=== PATIENT | male | born 1985 | race Caucasian/White ===

== ENCOUNTER 2019-12-30 03:12 | Emergency (ER) | payer MEDICAID, OTHER ==
[~2019-12-30] VITALS: Ht 182.9 cm; Wt 80.8 kg
[2019-12-30] MEDS ORDERED: FLUORESCEIN (FLUOR-I-STRIPS) 1 MG STRP ONE (03:39)
[2019-12-30] MEDS ORDERED: TETRACAINE 0.5% OPHTH SOLN 4 ML BTL (SINGLE DOSE ONLY) OP ONE (03:45)
[2019-12-30] MEDS ORDERED: RX-POLY/TRIMETH (POLYTRIM) OP 10 ML BTL OP STA (04:07)
--- NOTE | 2019-12-30 04:07 | ED EENT ---
History of Present Illness General Chief Complaint: Eye Problems Stated Complaint: R EYE PROBLEM Nursing Triage Note: PT AMBULATE TO ROOM FS02 WITH C/O HIS CONTACT STUCK IN HIS RIGHT EYE. PT STATES HE TRIED TO FLUSH THE CONTACT OUT WITH NEGATIVE RESULTS. Source: patient History of Present Illness Date Seen by Provider: Dec 30, 2019 Time Seen by Provider: 03:18 Initial Comments 34-year-old male presenting with right eye redness and pain. He states that in the afternoon he started having redness to his right eye and when he tried to get his contact out he was unable to do so. He had just changed his contacts 3 days ago. They are daily use but he changes them every 2 weeks. He has had no redness or difficulty before now. He was unable to flush his eye or get the contact out earlier. He had seen Dr. Mack for the contacts but by the time he was having problems with his eye the office was closed. He has had no drainage from his eye. He does have light sensitivity now with all the irritation to his eye. Allergies and Home Medications Allergies Coded Allergies: No Known Drug Allergies (Unverified , 12/30/19) Patient Home Medication List Home Medication List Reviewed: Yes Review of Systems Review of Systems Constitutional: No chills, No fever Eyes: Blurred Vision; Denies Drainage, Denies Decreased Acuity; Foreign Body Sensation, Inflammation, Pain, Photophobia; Denies Previous Injury, Denies Shadows, Denies Tunnel Vision, Denies Vision Changes; Contact Lenses Ears: No Symptoms Reported Nose: no symptoms reported Mouth: no symptoms reported Throat: no symptoms reported Respiratory: no symptoms reported Cardiovascular: no symptoms reported Gastrointestinal: no symptoms reported Musculoskeletal: no symptoms reported Skin: no symptoms reported Neurological: No Symptoms Reported Past Uwfpsna-Tjegeh-Ogrsvw Hx Past Med/Social Hx: Reviewed Nursing Past Med/Soc Hx Patient Social History Alcohol Use: Denies Use Recreational Drug Use: No Smoking Status: Never a Smoker 2nd Hand Smoke Exposure: No Recent Foreign Travel: No Contact w/Someone Who Travel: No Recent Infectious Disease Expo: No Recent Hopitalizations: No Physical Abuse: No Sexual Abuse: No Mistreated: No Fear: No Seasonal Allergies Seasonal Allergies: No Past Medical History Surgeries: No Respiratory: No Cardiac: No Neurological: No Genitourinary: No Gastrointestinal: No Musculoskeletal: Yes Back Injury Endocrine: No HEENT: No Cancer: No Psychosocial: Yes PTSD, Depression Integumentary: No Blood Disorders: No Physical Exam Vital Signs Vital Signs - First Documented 12/30/19 12/30/19 03:21 04:18 Temp 36.4 Pulse 100 Resp 19 B/P (MAP) 126/92 (103) Pulse Ox 100 O2 Delivery Room Air Height, Weight, BMI Height: '" Weight: lbs. oz. 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 II-XII nml as tested, no motor/sensory deficits, alert, oriented x 3 Skin: normal color, warm/dry Progress/Results/Core Measures Results/Orders My Orders Orders - STAR TELLO MD Tetracaine 0.5% Ophth Yue Sdv (Tetracai (12/30/19 03:45) Fluorescein Strips ([id number]) (12/30/19 03:39) Rx-Poly/Trimeth Ophth (Rx-Polytrim Ophth (12/30/19 04:07) Medications Given in ED Current Medications Medications Dose Ordered Sig/Rober Route Start Time Stop Time Status Last Admin Dose Admin Fluorescein Sodium 1 mg STK-MED ONCE .ROUTE 12/30/19 03:39 12/30/19 03:45 DC 12/30/19 03:45 1 MG Tetracaine HCl 1 OR 2 DROPS INTO AFFEC... ONCE ONCE OP 12/30/19 03:45 12/30/19 03:46 DC 12/30/19 03:45 4 ML Vital Signs/I&O 12/30/19 12/30/19 03:21 04:18 Temp 36.4 Pulse 100 87 Resp 19 17 B/P (MAP) 126/92 (103) 122/77 Pulse Ox 100 O2 Delivery Room Air Room Air Blood Pressure Mean: 103 Progress Progress Note : Progress Note After instilling tetracaine and fluorescein the contact was easily seen. While the eye was numbed with this tetracaine the contact was easily removed by myself while wearing gloves. He was then placed in a specimen container with sterile saline. Patient was started on Polytrim ophthalmic eyedrops and advised to check with Dr. Mack during the day. He was counseled to not use the contact in the right eye until the redness was cleared up. He was also advised to not use the contact that was in his eye today and to use a brand-new one month he started using contacts again in the right eye Departure Impression Primary Impression: Conjunctivitis, acute, right eye Qualified Codes: H10.31 - Unspecified acute conjunctivitis, right eye Additional Impression: Contact lens stuck Disposition: HOME, SELF-CARE Condition: Stable Departure-Patient Inst. Decision time for Depature: 04:11 Referrals: ILAN MTZ MD (PCP) Primary Care Physician Patient Instructions: Conjunctivitis (Noninfectious Pinkeye) (DC), Contact Lens Care Add. Discharge Instructions: Follow up with Dr. Mack or his eye clinic later today about the eye and contact. Use the eye drops, Poly-Trim 1 drop to right eye every 4 hours for the next 5 days. Do not use the contact lens on the right eye again until the redness has cleared up and then use a new contact lens. You may use ibuprofen 800 mg every 8 hours as needed for pain. Ice pack 15-20 minutes every few hours as needed for pain All discharge instructions reviewed with patient and/or family. Voiced understanding. STAR TELLO MD Dec 30, 2019 04:07
[2019-12-30 04:18] VITALS: BP 122/77
== END 2019-12-30 04:17 | disposition home or self-care (01) ==
LOC: ER FS 03:16
DX: H10.31 Unspecified acute conjunctivitis, right eye (principal); H18.829 Corneal disorder due to contact lens, unspecified eye
CPT/HCPCS: 99283

== ENCOUNTER 2020-03-18 23:27 | Emergency (ER) | payer SELFPAY ==
[~2020-03-18] VITALS: Ht 182.8 cm; Wt 79.3 kg
--- OUTSIDE RECORDS SUMMARY | 2020-03-18 23:37 | XMS REPORT | Continuity of Care Document ---
Author Organization Unknown Address Unknown Phone Unavailable Allergies Active Description Code Type Severity Reaction Onset Reported/Identified Relationship to Patient Clinical Status Yes No Known Drug Allergies [id number] Drug Allergy Unknown N/A 12/30/2019 Medications There is no data. 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 Results Test Result Range PDM - PAIN MGMT (PROFILE 3 WITH CONFIRMA TION) - 05/06/19 17:19 Prescribed Drug 1 Tramadol NRG Creatinine 142.4 mg/dL > or = 20.0 pH 6.24 4.5 - 9.0 Oxidant NEGATIVE mcg/mL <200 Amphetamines NEGATIVE ng/mL <500 medMATCH Amphetamines CONSISTENT NRG Benzodiazepines NEGATIVE ng/mL <100 medMATCH Benzodiazepines CONSISTENT NRG Marijuana Metabolite NEGATIVE ng/mL <20 medMATCH Marijuana Metab CONSISTENT NRG Cocaine Metabolite NEGATIVE ng/mL <150 medMATCH Cocaine Metab CONSISTENT NRG Opiates NEGATIVE ng/mL <100 medMATCH Opiates CONSISTENT NRG Oxycodone NEGATIVE ng/mL <100 medMATCH Oxycodone CONSISTENT NRG COMMENT NRG CMP - 12/24/19 11:16 GLUCOSE 86 mg/dL 65-99 UREA NITROGEN (BUN) 14 mg/dL 7-25 CREATININE 0.98 mg/dL 0.60-1.35 eGFR NON-AFR. ZAMBIAN 101 mL/min/1.73m2 > OR = 60 eGFR 117 mL/min/1.73m2 > OR = 60 BUN/CREATININE RATIO NOT APPLICABLE (calc) 6-22 SODIUM 143 mmol/L 135-146 POTASSIUM 4.7 mmol/L 3.5-5.3 CHLORIDE 107 mmol/L 98-110 CARBON DIOXIDE 29 mmol/L 20-32 CALCIUM 9.9 mg/dL 8.6-10.3 PROTEIN, TOTAL 7.6 g/dL 6.1-8.1 ALBUMIN 5.0 g/dL 3.6-5.1 GLOBULIN 2.6 g/dL (calc) 1.9-3.7 ALBUMIN/GLOBULIN RATIO 1.9 (calc) 1.0-2. 5 BILIRUBIN, TOTAL 0.8 mg/dL 0.2-1.2 ALKALINE PHOSPHATASE 66 U/L 36-130 AST 21 U/L 10-40 ALT 19 U/L 9-46 Encounters ACCT No. Visit Date/Time Discharge Status Pt. Type Provider Facility Loc./Unit Complaint [id number] 06/26/2019 10:32:00 06/26/2019 12:10: 00 DIS Outpatient MIC ELDRIDGE 012 PAIN [id number] 03/17/2020 15:20:00 ACT Outpatient [facility] [address] [id number] 12/24/2019 10:20:00 Document Registration [id number] 05/06/2019 16:40:00 Document Registration [id number] 05/27/2018 08:00:00 05/27/2018 23:59 :59 CLS Outpatient Annette Eldridge [facility] [id number] 12/30/2019 03:16:00 020 04:17:00 DIS Outpatient ELISHA DEGROOT, STAR Padilla [facility] ER FS R EYE PROBLEM
[2020-03-18 23:40] VITALS: BP 136/75
[2020-03-18] MEDS ORDERED: DICL75TA2 PO (23:43)
--- NOTE | 2020-03-18 23:43 | ED Upper Extremity ---
General Chief Complaint: Upper Extremity Stated Complaint: RIGHT SHOULDER PAIN Source: patient Exam Limitations: no limitations History of Present Illness Date Seen by Provider: March 18, 2020 Time Seen by Provider: 23:30 Initial Comments This patient presents to the emerge department complaining of right shoulder pain. 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 Is of pain and certain movements. Onset: this afternoon Severity: mild Pain/Injury Location: right shoulder Modifying Factors: Worse With Cold Therapy, Worse With Immobilization, Worse With Jarring, Worse With Movement, Worse With Pain Medication, Worse With Rest, Worse With Other Allergies and Home Medications Allergies Coded Allergies: No Known Drug Allergies (Unverified , 12/30/19) Patient Home Medication List Home Medication List Reviewed: Yes Review of Systems Constitutional: No no symptoms reported; see HPI; No chills, No diaphoresis, No dizziness, No fever, No malaise, No weakness, No weight gain, No weight loss, No other EENTM: No see HPI, No no symptoms reported, No ear discharge, No hearing loss, No ear pain, No blurred vision, No double vision, No eye pain, No tearing, No vision loss, No dental problems, No hoarseness, No mouth pain, No mouth swelling, No epistaxis, No nose congestion, No nose pain, No throat pain, No throat swelling, No other Respiratory: No no symptoms reported, No see HPI, No cough, No dyspnea on exertion, No hemoptysis, No orthopnea, No phlegm, No short of breath, No stridor, No wheezing, No other Cardiovascular: No no symptoms reported, No see HPI, No chest pain, No edema, No Hx of Intervention, No palpitations, No syncope, No vascular heart diseas, No other Gastrointestinal: No RUQ, No LUQ, No RLQ, No LLQ, No no symptoms reported, No see HPI, No abdominal pain, No constipation, No diarrhea, No dysphagia, No hematemesis, No heartburn, No jaundice, No loss of appetite, No melena, No nausea, No vomiting, No other Genitourinary: No no symptoms reported, No see HPI, No decreased output, No discharge, No dysuria, No frequency, No hematuria, No hesitancy, No incontinence, No nocturia, No pain, No other Musculoskeletal: No no symptoms reported; see HPI; No back pain, No gout, No joint pain, No joint swelling; muscle pain; No muscle stiffness, No muscle cramps, No muscle twitching, No muscle weakness, No neck pain, No other Skin: No no symptoms reported, No see HPI, No change in color, No change in hair/nails, No dryness, No hx of skin cancer, No lesions, No lumps, No pruritus, No rash, No other All Other Systems Reviewed Negative Unless Noted: Yes Past Jmbnatv-Unxmcc-Csisqa Hx Patient Social History 2nd Hand Smoke Exposure: No Recent Foreign Travel: No Contact w/Someone Who Travel: No Recent Hopitalizations: No Seasonal Allergies Seasonal Allergies: No Past Medical History Surgeries: No Respiratory: No Cardiac: No Neurological: No Genitourinary: No Gastrointestinal: No Musculoskeletal: Yes Back Injury Endocrine: No HEENT: No Cancer: No Psychosocial: Yes PTSD, Depression Integumentary: No Blood Disorders: No Physical Exam Vital Signs Capillary Refill : Height, Weight, BMI Height: '" Weight: lbs. oz. kg; 24.00 BMI Method: General Appearance: WD/WN, no apparent distress HEENT: PERRL/EOMI, normal ENT inspection, TMs normal, pharynx normal Neck: non-tender, full range of motion, supple, normal inspection Cardiovascular: normal peripheral pulses, regular rate, rhythm, no edema, no gallop, no JVD, no murmur Respiratory: chest non-tender, lungs clear, normal breath sounds, no respiratory distress, no accessory muscle use Shoulder: normal inspection, no evidence of injury, limited ROM (on exam patient appears to have an infraspinatus rotator cuff strain. Otherwise exam is normal.) Progress/Results/Core Measures Progress Progress Note : Time: 23:41 Progress Note Concern for possible rotator cuff strain. Patient is encouraged to rest shoulder no heavy lifting greater than 10 pounds. Use ice and heat as needed. Tylenol Motrin as needed for pain. Patient states understanding. 2-3 days Departure Impression Primary Impression: Shoulder strain Disposition: 01 HOME, SELF-CARE Condition: Stable Departure-Patient Inst. Decision time for Depature: 23:42 Referrals: ILAN MTZ MD (PCP) Primary Care Physician Patient Instructions: Shoulder Sprain, Muscle Strain Add. Discharge Instructions: Concern for possible rotator cuff strain. Patient is encouraged to rest shoulder no heavy lifting greater than 10 pounds. Use ice and heat as needed. Tylenol Motrin as needed for pain. Patient states understanding. 2-3 days All discharge instructions reviewed with patient and/or family. Voiced understanding. Scripts Diclofenac Sodium (Diclofenac Sodium) 75 Mg Tablet. 75 MG PO BID for 10 Days, #20 TAB 0 Refills Prov: ILAN RIVERA MD 03/18/20 ILAN RIVERA MD March 18, 2020 23:43
== END 2020-03-18 23:49 | disposition home or self-care (01) ==
LOC: EDUNIT# 23:27 → ER FS 23:33
DX: S46.911A Strain of unspecified muscle, fascia and tendon at shoulder and upper arm level, right arm, initial encounter (principal); X50.9XXA Other and unspecified overexertion or strenuous movements or postures, initial encounter
CPT/HCPCS: 99282

== ENCOUNTER 2020-09-19 16:50 | Emergency (ER) | payer OTHER ==
[~2020-09-19] VITALS: Ht 182.8 cm; Wt 79.4 kg
[~2020-09-19 16:50] MED LIST: DICL75TA2 PO
[2020-09-19 16:55] VITALS: BP 115/78
--- NOTE | 2020-09-19 17:08 | ED General ---
General Chief Complaint: Laceration Stated Complaint: L HAND LAC Nursing Triage Note: PT AMB TO RM 6 WITH COMPLAINT OF LEFT HAND LACERATION. STATES CUT EARLIER THIS MORNING ON BARBED WIRE. LAST TETANUS 10 YRS AGO. Nursing Sepsis Screen: No Definite Risk History of Present Illness Date Seen by Provider: Sep 19, 2020 Time Seen by Provider: 17:00 Initial Comments This is a healthy 34-year-old male presents to the ED with laceration to his left hand while fixing a barbed wire fence, bleeding controlled. Last tetanus 2014. No other injuries reported. Location Injury Occurred: left dorsal thumb base Allergies and Home Medications Allergies Coded Allergies: No Known Drug Allergies (Unverified , 12/30/19) Home Medications Diclofenac Sodium 75 Mg Tablet.dr, 75 MG PO BID Prescribed by: ILAN RIVERA on 03/18/20 [id number] Patient Home Medication List Home Medication List Reviewed: Yes Review of Systems Review of Systems Constitutional: no symptoms reported EENTM: no symptoms reported Respiratory: no symptoms reported Cardiovascular: no symptoms reported Gastrointestinal: no symptoms reported Genitourinary: no symptoms reported Musculoskeletal: no symptoms reported Skin: see HPI Psychiatric/Neurological: No Symptoms Reported Hematologic/Lymphatic: No Symptoms Reported Immunological/Allergic: no symptoms reported Past Xiuowou-Uxfyqc-Tfccer Hx Patient Social History Alcohol Use: Denies Use Recreational Drug Use: No Smoking Status: Former Smoker 2nd Hand Smoke Exposure: No Recent Foreign Travel: No Contact w/Someone Who Travel: No Recent Infectious Disease Expo: No Recent Hopitalizations: No Immunizations Up To Date Tetanus Booster (TDap): More than 5yrs Seasonal Allergies Seasonal Allergies: No Past Medical History Surgeries: No Respiratory: No Cardiac: No Neurological: No Genitourinary: No Gastrointestinal: No Musculoskeletal: Yes Back Injury Endocrine: No HEENT: No Cancer: No Psychosocial: Yes PTSD, Depression Integumentary: No Blood Disorders: No Physical Exam Vital Signs Vital Signs - First Documented 09/19/20 16:55 Pulse 100 Resp 16 B/P (MAP) 115/78 (90) Pulse Ox 97 O2 Delivery Room Air Capillary Refill : Less Than 3 Seconds Height, Weight, BMI Height: '" Weight: lbs. oz. kg; 23.00 BMI Method: General Appearance: No Apparent Distress, WD/WN HEENT: PERRL/EOMI Neck: Full Range of Motion, Normal Inspection Respiratory: Lungs Clear, Normal Breath Sounds, No Accessory Muscle Use Cardiovascular: Regular Rate, Rhythm, No Murmur, Normal Peripheral Pulses Extremity: Normal Capillary Refill, Normal Inspection, Normal Range of Motion, Non Tender Neurologic/Psychiatric: Alert, Oriented x3, No Motor/Sensory Deficits, Normal Mood/Affect Skin: Normal Color, Warm/Dry, Other (1.5 cm superficial laceration to dorsal left thumb base) Procedures/Interventions Other Wound Location Left dorsal thumb base. Wound Length (cm): 1.5 Wound's Depth, Shape: superficial Other Closure Supply: Wound Adhesive Progress Site was cleansed with chlorhexidine and saline wash. Approximated skin with Dermabond. Tolerated procedure well. 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 Departure Impression Primary Impression: Laceration Disposition: 01 HOME, SELF-CARE Condition: Improved Departure-Patient Inst. Decision time for Depature: 17:07 Referrals: ILAN MTZ MD (PCP/Family) Primary Care Physician Patient Instructions: Laceration Repair With Glue (DC) Add. Discharge Instructions: Keep area clean and dry. Keep glue in place for about 7 days, if the edges pull up you can clip the edges, do not pick or pull. Monitor for signs of infection such as redness, swelling, fever, purulent drainage. Follow-up with your primary care provider if you develop any symptoms. Return to ER for any new or concerning symptoms. All discharge instructions reviewed with patient and/or family. Voiced understanding. SRIRAM JOSÉ [employer] TE[employer]ER Sep 19, 2020 17:08
[2020-09-19] MEDS ORDERED: TETANUS,DIPTH,PERTUSS P/F (BOOSTRIX) 0.5 ML VIAL IM ONE (17:15)
== END 2020-09-19 17:12 | disposition home or self-care (01) ==
LOC: EDUNIT# 16:50 → ER 16:52
DX: S61.012A Laceration without foreign body of left thumb without damage to nail, initial encounter (principal); Z23 Encounter for immunization; Z87.891 Personal history of nicotine dependence; W26.8XXA Contact with other sharp object(s), not elsewhere classified, initial encounter
CPT/HCPCS: 12001; 90715

== ENCOUNTER 2021-04-05 18:08 | Emergency (ER) | payer OTHER ==
[~2021-04-05] VITALS: Ht 182 cm; Wt 82.0 kg
[2021-04-05 18:55] LABS: BASOPHILS % (AUTO) 1 % (0-10); EOSINOPHILS % (AUTO) 1 % (0-10); HEMATOCRIT 44 % (40-54); HEMOGLOBIN 15.4 G/DL (13.3-17.7); LYMPHOCYTES % (AUTO) 26 % (12-44); MEAN CORPUSCULAR HEMOGLOBIN 30 PG (25-34); MEAN CORPUSCULAR HGB CONC 35 G/DL (32-36); MEAN CORPUSCULAR VOLUME 88 FL (80-99); MEAN PLATELET VOLUME 9.9 FL (7.4-10.4); MONOCYTES % (AUTO) 6 % (0-12); NEUTROPHILS % (AUTO) 66 % (42-75); PLATELET COUNT 261 10^3/uL (130-400); WHITE BLOOD COUNT 7.6 10^3/uL (4.3-11.0)
[2021-04-05 18:56] LABS: BASOPHILS # (AUTO) 0.1 10^3/uL (0.0-0.1); EOSINOPHILS # (AUTO) 0.1 10^3/uL (0.0-0.3); MONOCYTES # (AUTO) 0.5 X 10^3 (0.0-1.0)
[2021-04-05 19:09] LABS: ALANINE AMINOTRANSFERASE 24 U/L (0-55); ALKALINE PHOSPHATASE 73 U/L (40-136); BILIRUBIN,TOTAL 1.2 MG/DL (0.1-1.0); BUN/CREATININE RATIO 13; CALCIUM 9.6 MG/DL (8.5-10.1); CARBON DIOXIDE 26 MMOL/L (21-32); CHLORIDE 107 MMOL/L (98-107); CREATININE SERUM 0.89 MG/DL (0.60-1.30); GFR ESTIMATED > 60; MAGNESIUM 2.2 MG/DL (1.6-2.4); POTASSIUM 3.9 MMOL/L (3.6-5.0); SODIUM 144 MMOL/L (135-145); TOTAL PROTEIN 7.3 GM/DL (6.4-8.2)
--- NOTE | 2021-04-05 19:09 | ED General ---
General Chief Complaint: General Problems/Pain Stated Complaint: LETHARGY Nursing Triage Note: PT REPORTS HE HAS HAD NO ENERGY FOR 2 YEARS. Nursing Sepsis Screen: No Definite Risk Source of Information: Patient Exam Limitations: No Limitations History of Present Illness Date Seen by Provider: Apr 05, 2021 Time Seen by Provider: 18:00 Initial Comments Patient is a 35-year-old male with history of PTSD, bipolar with schizophrenia who presents with chronic fatigue. Patient states symptoms of been ongoing for the past few years. He has been evaluated by his primary care provider for the same. He denies increase or worsening of his daily fatigue, but states his symptoms have not improved from baseline. 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 He denies falling asleep during work. He does not have dizziness, lightheadedness, body aches, sore throat fever or any infectious symptoms. Does not have excessive oozing or no bleeding. He denies any weight loss or nighttime sweats. Does not have a personal history of cancer. No new medications or changes. No other acute symptoms or complaints. Patient has plans to follow-up with his PCP in the next week but was hoping he could jump start the process by obtaining screening labs Timing/Duration: Other Severity: Moderate Modifying Factors: improves with Other Associated Systoms: Other Allergies and Home Medications Allergies Coded Allergies: No Known Drug Allergies (Unverified , 12/30/19) Home Medications Diclofenac Sodium 75 Mg Tablet.dr, 75 MG PO BID Prescribed by: ILAN RIVERA on 03/18/20 0281 Patient Home Medication List Home Medication List Reviewed: Yes Review of Systems Review of Systems Constitutional: see HPI EENTM: see HPI Respiratory: see HPI Cardiovascular: see HPI Gastrointestinal: see HPI Genitourinary: see HPI Musculoskeletal: see HPI Psychiatric/Neurological: See HPI Hematologic/Lymphatic: See HPI Immunological/Allergic: see HPI All Other Systems Reviewed Negative Unless Noted: Yes Past Pubrble-Evcjrj-Neogqw Hx Past Med/Social Hx: Reviewed Nursing Past Med/Soc Hx Patient Social History Alcohol Use: Denies Use Smoking Status: Never a Smoker 2nd Hand Smoke Exposure: No Recent Infectious Disease Expo: No Recent Hopitalizations: No Immunizations Up To Date Tetanus Booster (TDap): More than 5yrs Seasonal Allergies Seasonal Allergies: No Past Medical History Surgeries: No Respiratory: No Cardiac: No Neurological: No Genitourinary: No Gastrointestinal: No Musculoskeletal: Yes Back Injury Endocrine: No HEENT: No Cancer: No Psychosocial: Yes PTSD, Depression Integumentary: No Blood Disorders: No Physical Exam Vital Signs Vital Signs - First Documented 04/05/21 18:11 Temp 36.7 Pulse 88 Resp 18 B/P (MAP) 84/ Pulse Ox 98 O2 Delivery Room Air Capillary Refill : Less Than 3 Seconds Height, Weight, BMI Height: '" Weight: lbs. oz. kg; 24.00 BMI Method: General Appearance: Anxious Eyes: Bilateral Eye Normal Inspection, Bilateral Eye PERRL, Bilateral Eye EOMI HEENT: PERRL/EOMI, Pharynx Normal, Moist Mucous Membranes Neck: Non Tender, Supple Respiratory: Lungs Clear Cardiovascular: Regular Rate, Rhythm, No Edema Gastrointestinal: Non Tender, Soft Back: No CVA Tenderness Neurologic/Psychiatric: Alert, Oriented x3, Normal Mood/Affect, cord cutter II-XII Norm as Tested Skin: Normal Color, Warm/Dry Focused Exam Sepsis Stage: Ruled Out Progress/Results/Core Measures Suspected Sepsis Recent Fever Within 48 Hours: No Infection Criteria Present: None New/Unexplained Altered Menta: No Sepsis Screen: No Definite Risk SIRS Temperature: Pulse: 88 Respiratory Rate: 18 Laboratory Tests 04/05/21 18:43: White Blood Count 7.6 Blood Pressure 84 / Mean: Laboratory Tests 04/05/21 18:43: Creatinine 0.89, Platelet Count 261, Total Bilirubin 1.2H Results/Orders Lab Results Laboratory Tests Test 04/05/21 18:43 Range/Units White Blood Count 7.6 4.3-11.0 10^3/uL Red Blood Count 5.06 4.35-5.85 10^6/uL Hemoglobin 15.4 13.3-17.7 G/DL Hematocrit 44 40-54 % Mean Corpuscular Volume 88 80-99 FL Mean Corpuscular Hemoglobin 30 25-34 PG Mean Corpuscular Hemoglobin Concent 35 32-36 G/DL Red Cell Distribution Width 12.5 10.0-14.5 % Platelet Count 261 130-400 10^3/uL Mean Platelet Volume 9.9 7.4-10.4 FL Immature Granulocyte % (Auto) 0 % Neutrophils (%) (Auto) 66 42-75 % Lymphocytes (%) (Auto) 26 12-44 % Monocytes (%) (Auto) 6 0-12 % Eosinophils (%) (Auto) 1 0-10 % Basophils (%) (Auto) 1 0-10 % Neutrophils # (Auto) 5.0 1.8-7.8 X 10^3 Lymphocytes # (Auto) 2.0 1.0-4.0 X 10^3 Monocytes # (Auto) 0.5 0.0-1.0 X 10^3 Eosinophils # (Auto) 0.1 0.0-0.3 10^3/uL Basophils # (Auto) 0.1 0.0-0.1 10^3/uL Immature Granulocyte # (Auto) 0.0 0.0-0.1 10^3/uL Sodium Level 144 135-145 MMOL/L Potassium Level 3.9 3.6-5.0 MMOL/L Chloride Level 107 98-107 MMOL/L Carbon Dioxide Level 26 21-32 MMOL/L Anion Gap 11 5-14 MMOL/L Blood Urea Nitrogen 12 7-18 MG/DL Creatinine 0.89 0.60-1.30 MG/DL Estimat Glomerular Filtration Rate > 60 BUN/Creatinine Ratio 13 Glucose Level 94 70-105 MG/DL Calcium Level 9.6 8.5-10.1 MG/DL Corrected Calcium 9.2 8.5-10.1 MG/DL Magnesium Level 2.2 1.6-2.4 MG/DL Total Bilirubin 1.2 H 0.1-1.0 MG/DL Aspartate Amino Transf (AST/SGOT) 17 5-34 U/L Alanine Aminotransferase (ALT/SGPT) 24 0-55 U/L Alkaline Phosphatase 73 40-136 U/L Total Protein 7.3 6.4-8.2 GM/DL Albumin 4.5 3.2-4.5 GM/DL Monoscreen NEGATIVE NEGATIVE My Orders Orders - HOMERO VASQUEZ DO Cbc With Automated Diff (04/05/21 18:31) Comprehensive Metabolic Panel (04/05/21 18:31) Magnesium (04/05/21 18:31) Thyroid Stimulating Hormone (04/05/21 18:31) Valproic Acid (04/05/21 18:37) Monotest (04/05/21 18:37) Vital Signs/I&O 04/05/21 18:11 Temp 36.7 Pulse 88 Resp 18 B/P (MAP) 84/ Pulse Ox 98 O2 Delivery Room Air Capillary Refill : Less Than 3 Seconds Departure Communication (Admissions) Initial labs reviewed and unrevealing. Valproic acid pending. Patient instructed to check lab result via web portal tomorrow and follow-up with his PCP next week as previously planned. Patient verbalizes understanding agreement discharge instructions prior to departure. Impression Primary Impression: Fatigue Disposition: HOME, SELF-CARE Condition: Stable Departure-Patient Inst. Referrals: ILAN MTZ MD (PCP/Family) Primary Care Physician Patient Instructions: Fatigue Add. Discharge Instructions: You WERE evaluated in the emergency department for chronic fatigue. CBC chemistry, magnesium, Monospot were obtained and are normal. A valproic acid level is pending. Please follow-up with your PCP next week to review laboratory and for further evaluation. Return to the ED if new or concerning symptoms All discharge instructions reviewed with patient and/or family. Voiced understanding. HOMERO VASQUEZ DO Apr 05, 2021 19:09
[2021-04-05 19:10] LABS: ALBUMIN 4.5 GM/DL (3.2-4.5); GLUCOSE 94 MG/DL (70-105)
[2021-04-05 19:50] VITALS: BP 132/84
[2021-04-06 19:55] LABS: VALPROIC ACID < 2.0 UG/ML (50.0-100.0)
== END 2021-04-05 19:50 | disposition home or self-care (01) ==
LOC: ER FS 18:08
DX: R53.83 Other fatigue (principal)
CPT/HCPCS: 36415; 80053; 80164; 83735; 84443; 85025; 86308

== ENCOUNTER 2022-04-30 17:44 | Emergency (ER) | payer OTHER ==
[~2022-04-30] VITALS: Ht 180.3 cm; Wt 83.9 kg
[2022-04-30 17:50] VITALS: BP 134/81
--- NOTE | 2022-04-30 18:06 | ED Cough/URI ---
General Chief Complaint: Abdominal/GI Problems Stated Complaint: LOSS OF APPETITE Source: patient Exam Limitations: no limitations History of Present Illness Date Seen by Provider: Apr 30, 2022 Time Seen by Provider: 17:47 Initial Comments 36-year-old male with past medical history of schizophrenia and chronic allergies coming in due to worsening congestion and cough over the past 3 days. He says he typically associates this with his allergies. When he gets this bad he has lack of appetite. He is not had any body aches, fever, nausea, vomiting, diarrhea until this morning where he had 1 episode that was nonbloody, no abdominal pain, chest pain, shortness of breath, weakness, numbness, rash, or any other concerns. Allergies and Home Medications Allergies Coded Allergies: No Known Drug Allergies (Unverified , 12/30/19) Patient Home Medication List Home Medication List Reviewed: Yes Diclofenac Sodium (Diclofenac Sodium) 75 Mg Tablet., 75 MG PO BID Prescribed by: ILAN RIVERA on 03/18/20 4129 Review of Systems Review of Systems Constitutional: No fever EENTM: No blurred vision Respiratory: cough Cardiovascular: No chest pain Gastrointestinal: No abdominal pain Genitourinary: no symptoms reported Musculoskeletal: no symptoms reported Skin: no symptoms reported Psychiatric/Neurological: No Symptoms Reported Hematologic/Lymphatic: No Symptoms Reported Immunological/Allergic: no symptoms reported All Other Systems Reviewed Negative Unless Noted: Yes Past Xzwfsmm-Vifvgd-Faahdf Hx Patient Social History Tobacco Use?: No Substance use?: No Alcohol Use?: No Immunizations Up To Date Tetanus Booster (TDap): More than 5yrs Seasonal Allergies Seasonal Allergies: No Past Medical History Surgeries: No Respiratory: No Cardiac: No Neurological: No Genitourinary: No Gastrointestinal: No Musculoskeletal: Yes Back Injury Endocrine: No HEENT: No Cancer: No Psychosocial: Yes PTSD, Depression Integumentary: No Blood Disorders: No Physical Exam Capillary Refill : Height: '" Weight: lbs. oz. kg; 24.00 BMI Method: General Appearance: WD/WN, no apparent distress Eyes: Bilateral Eye Normal Inspection HEENT: PERRL/EOMI, normal ENT inspection, pharynx normal Neck: non-tender, full range of motion, supple, normal inspection Respiratory: chest non-tender, lungs clear, normal breath sounds, no respiratory distress, no accessory muscle use Cardiovascular: regular rate, rhythm, no edema, no murmur Gastrointestinal: normal bowel sounds, non tender, soft; No distended, No guarding, No rebound Extremities: normal range of motion, non-tender, normal inspection, no pedal edema, no calf tenderness, normal capillary refill Neurologic/Psychiatric: no motor/sensory deficits, alert, normal mood/affect Skin: normal color, warm/dry Lymphatic: no adenopathy Progress/Results/Core Measures Suspected Sepsis SIRS Temperature: Pulse: Respiratory Rate: Blood Pressure / Mean: Results/Orders My Orders Orders - ELLEN DONOVAN MD Influenza A And B By Pcr (04/30/22 18:02) Covid 19 Inhouse Test (04/30/22 18:02) Dexamethasone Oral Soln (Ed) (Decadron I (04/30/22 18:02) Vital Signs/I&O Capillary Refill : Progress Note : Progress Note 36-year-old male coming in due to mild cough and congestion. ABCs were intact and vitals were stable on presentation. Physical exam reassuring with no focal abnormalities other than he does have an active dry cough. Lungs were clear, breathing comfortably, satting 99% on room air. Offered COVID and flu testing which are pending. I believe he stable for discharge with outpatient follow-up. He was sent home with strict return precautions Departure Impression Primary Impression: Cough Additional Impression: Person under investigation for COVID-19 Disposition: 01 HOME, SELF-CARE Condition: Stable Departure-Patient Inst. Decision time for Depature: 18:05 Referrals: ILAN MTZ MD (PCP) Primary Care Physician Patient Instructions: Cough, Runny Nose, and the Common Cold Add. Discharge Instructions: Follow-up with your regular doctor in a couple days if things are not improving. We will call you today if your COVID test or flu test is positive. Work/School Note: Work Release Form Date Seen in the Emergency Department: Apr 30, 2022 Return to Work: May 01, 2022 Restrictions: No Restrictions ELLEN DONOVAN MD Apr 30, 2022 18:06
== END 2022-04-30 18:16 | disposition home or self-care (01) ==
LOC: EDUNIT# 17:44 → ER FS 17:46
DX: R05.1 Acute cough (principal); Z01.84 Encounter for antibody response examination
CPT/HCPCS: 87636; 99283